=== PATIENT | female | born 1975 | race Caucasian/White ===

== ENCOUNTER → 2018-09-03 | Outpatient (CLI) | payer OTHER ==
--- NOTE | 2018-09-06 13:26 | MM ---
Reason for exam: screening (asymptomatic). Last mammogram was performed 3 years and 9 months ago. History: Taking hormonal contraceptives for 6 months. Physical Findings: A clinical breast exam by your physician is recommended on an annual basis and results should be correlated with mammographic findings. MG 3D Screening Mammo W/Cad Bilateral CC and MLO view(s) were taken. Prior study comparison: December 12, 2014, bilateral MG screening mammo w CAD. The breast tissue is heterogeneously dense. This may lower the sensitivity of mammography. New right upper outer quadrant posterior depth focal asymmetry. ASSESSMENT: Incomplete: need additional imaging evaluation, BI-RAD 0 RECOMMENDATION: Special view mammogram of the right breast. If lesion persists on supplemental views, image directed ultrasound is recommended. [facility] will attempt to contact patient to return for supplemental views and ultrasound if indicated.
== END | disposition home or self-care (01) ==
LOC: RADMAMWWP 09:57
PROVIDERS: ATTEND Obstetrics & Gynecology
DX: Z12.31 Encounter for screening mammogram for malignant neoplasm of breast (principal)
CPT/HCPCS: 77063; 77067

== ENCOUNTER → 2018-09-09 | Outpatient (CLI) | payer OTHER ==
--- NOTE | 2018-09-10 09:03 | MM ---
Reason for exam: additional evaluation requested from abnormal screening. Last mammogram was performed less than 1 month ago. History: Taking hormonal contraceptives for 6 months. Physical Findings: Nurse did not find any significant physical abnormalities on exam. MG 3D Work Up W/Cad RT Spot compression CC, spot compression MLO, and LM view(s) were taken of the right breast. Prior study comparison: September 03, 2018, bilateral MG 3d screening mammo w/cad. December 12, 2014, bilateral MG screening mammo w CAD. The breast tissue is heterogeneously dense. This may lower the sensitivity of mammography. Persistent right focal asymmetry 8-9cm from nipple at middle depth in the upper outer quadrant. These results were verbally communicated with the patient and result sheet given to the patient on 09/09/18. ASSESSMENT: Incomplete: need additional imaging evaluation, BI-RAD 0 RECOMMENDATION: Ultrasound of the right breast. upper outer quadrant
--- NOTE | 2018-09-10 09:06 | USB ---
Reason for exam: additional evaluation requested from abnormal screening. History: Taking hormonal contraceptives for 6 months. US Breast Workup Limited RT Right limited breast ultrasound including focal area of concern, retroareolar and axilla demonstrates a 0.6 x 0.5 x 0.7cm mixed lesion at 11 o'clock. 6 month follow up pending stereotactic biopsy results as this does not certainly correspond to mammographic finding. Stereotactic biopsy recommended for the mammographic finding. These results were verbally communicated with the patient and result sheet given to the patient on 09/09/18. ASSESSMENT: Suspicious, BI-RAD 4 RECOMMENDATION: Stereotactic core biopsy of the right breast. Called Dr. Maldonado with mammographic findings and has scheduled an appointment for the patient for 09/29/18 at 1:[address] Sanders. Biopsy scheduled for 09/23/18 at 2:20. PRELIMINARY REPORT CALLED AND FAXED TO DR. SANDERS ON 09/10/18.
== END | disposition home or self-care (01) ==
LOC: RADMAMWWP 14:06
PROVIDERS: ATTEND Obstetrics & Gynecology
DX: R92.8 Other abnormal and inconclusive findings on diagnostic imaging of breast (principal)
CPT/HCPCS: 77061; 77065

== ENCOUNTER → 2018-09-23 | Day surgery (SDC) | payer OTHER ==
[2018-09-23 13:47] VITALS: RESP 16; BMI 60.4
[2018-09-23 15:44] VITALS: BP 134/87; PULSE 80; TEMP 98
--- NOTE | 2018-09-24 11:58 | MM ---
EXAMINATION TYPE: MG stereo VAD BX RT DATE OF EXAM: 09/23/2018 COMPARISON: Diagnostic exam of 09/09/2018 CLINICAL HISTORY: Right breast posterior depth upper outer quadrant focal asymmetry with indeterminate on diagnostic exam without sonographic correlate for which stereotactic biopsy was recommended. TECHNIQUE: Stereotactic guided core biopsy of right breast. FINDINGS: The procedure of stereotactic guided core biopsy was explained to the patient. Benefits, alternatives, and risks were discussed. An informed consent was then obtained. Preprocedural timeout was performed. The shortness pathway for biopsy was chosen. Shortness pathway was CC from above approach. Coordinates were calculated. Subsequently 10 cc of lidocaine without epinephrine was utilized to anesthetize the skin and deeper subcutaneous soft tissues. The needle was advanced to the appropriate depth. Prefire images were obtained ensuring appropriate location. Postfire injection of 10 cc of lidocaine with epinephrine was utilized to anesthetize the site of biopsy. A vacuum assisted biopsy gun was used to obtain 11 core samples. The patient tolerated the procedure well without any immediate complication. The patient was kept in the radiology department for short stay after the procedure and then discharged home in stable condition. Targeted calcifications are identified in specimen mammogram. Post biopsy mammogram (CC and true lateral) shows the clip to appear in satisfactory position relative to the targeted area of concern on the preprocedure images. IMPRESSION: SUCCESSFUL, UNCOMPLICATED STEREOTACTIC GUIDED CORE BIOPSY OF AN INDETERMINATE ON THE PRIOR QUADRANT FOCAL ASYMMETRY AT POSTERIOR DEPTH WITHOUT SONOGRAPHIC CORRELATE BREAST, FULL PATHOLOGY RESULTS TO FOLLOW. Pathology Results: Benign RIGHT BREAST, STEREOTACTIC CORE BIOPSY: Benign breast with fibrocystic changes including fibrosis and small cysts. Focal fat necrosis. Recommendation Follow up mammogram and ultrasound of the right breast in 6 months. VICKIE
== END ==
LOC: RADMAMWWP 13:03
PROVIDERS: ATTEND Student in an Organized Health Care Education/Training Program
DX: N60.11 Diffuse cystic mastopathy of right breast (principal); N64.1 Fat necrosis of breast
CPT/HCPCS: 19081; 88305; A4648; J2001

== ENCOUNTER → 2019-08-24 | Outpatient (CLI) | payer OTHER ==
--- NOTE | 2019-08-24 10:54 | CT ---
EXAMINATION TYPE: CT abdomen pelvis wo con DATE OF EXAM: 08/24/2019 COMPARISON: None INDICATION: LLQ pain, renal stone protocol DLP: 921 mGycm, Automated exposure control for dose reduction was used. CONTRAST: 0 mL of . Study performed without Oral Contrast TECHNIQUE: Axial images were obtained from above the diaphragm to the pubic rami in the axial plane a t 5 mm thick sections. Reconstructed images are reviewed on the computer in the coronal plane. FINDINGS: Limited CT sections are obtained the lung bases. The lung bases are clear. CT ABDOMEN: Liver: Normal Spleen: Normal Pancreas: Normal Adrenal glands: The adrenal glands are normal. Gallbladder: Normal Kidneys: No masses are evident. No hydronephrosis is present. No cysts are present. No renal stone s are identified. Aorta: Normal Inferior vena cava: Normal. CT PELVIS: There are some inflammatory changes in the proximal descending paracolic gutter. Diverticuli are pres ent adjacent. Mild acute diverticulitis is present. No abscess formation is evident. No free air is e vident. The study is performed without oral contrast limiting bowel evaluation. Appendix: Normal as visualized. Urinary bladder: Normal. Genitourinary structures: There is a large right ovarian cyst measuring 6.6 x 4.6 cm. A smaller left ovarian cyst measuring 1.6 x 2.2 cm is present. Uterus is unremarkable. Osseous structures: No suspicious lytic or sclerotic lesions. Degenerative disc change and facet jara ges are in the lower lumbar spine IMPRESSIONS: 1. Mild acute diverticulitis proximal ascending colon. No abscess formation or free air is evident.
== END | disposition home or self-care (01) ==
LOC: RADCTMAIN 10:07
PROVIDERS: ATTEND Family Medicine
DX: K57.32 Diverticulitis of large intestine without perforation or abscess without bleeding (principal)
CPT/HCPCS: 74176

== ENCOUNTER → 2020-03-12 | Outpatient (CLI) | payer OTHER ==
--- NOTE | 2020-03-13 14:17 | MM ---
Reason for exam: screening (asymptomatic). Last mammogram was performed 1 year and 6 months ago. History: Benign MG stereo VAD BX RT of the right breast, September 23, 2018. Taking hormonal contraceptives for 6 months. Physical Findings: A clinical breast exam by your physician is recommended on an annual basis and results should be correlated with mammographic findings. MG 3D Screening Mammo W/Cad Bilateral CC and MLO view(s) were taken. Prior study comparison: September 09, 2018, right breast MG 3d work up w/cad RT. September 03, 2018, bilateral MG 3d screening mammo w/cad. The breast tissue is heterogeneously dense. This may lower the sensitivity of mammography. Previous mammotome biopsy in the right breast. No significant changes when compared with prior studies. ASSESSMENT: Benign, BI-RAD 2 RECOMMENDATION: Routine screening mammogram of both breasts in 1 year.
== END | disposition home or self-care (01) ==
LOC: RADMAMWWP 15:47
PROVIDERS: ATTEND Obstetrics & Gynecology
DX: Z12.31 Encounter for screening mammogram for malignant neoplasm of breast (principal)
CPT/HCPCS: 77063; 77067

== ENCOUNTER → 2020-06-28 | Outpatient (CLI) | payer OTHER ==
--- NOTE | 2020-06-28 17:55 | XR ---
PROCEDURE: XR cervical spine comp - 6V DATE AND TIME: 06/28/2020 5:45 PM CLINICAL INDICATION: PHH; M54.5, M54.6; pain TECHNIQUE: Department protocol COMPARISON: None FINDINGS: There is no fracture or malalignment. The soft tissues are unremarkable. Multilevel relatively mild spondylosis changes are noted, most advanced at the C5-6 level. IMPRESSION: NO ACUTE PROCESS.
--- NOTE | 2020-06-28 17:56 | XR ---
PROCEDURE: XR thoracic spine complete - 3V DATE AND TIME: 06/28/2020 5:44 PM CLINICAL INDICATION: PHH; M54.5, M54.6; pain TECHNIQUE: Department protocol COMPARISON: None FINDINGS: There is no fracture or malalignment. The soft tissues are unremarkable. IMPRESSION: NO ACUTE PROCESS.
--- NOTE | 2020-06-28 17:58 | XR ---
PROCEDURE: XR lumbosacral spine 5 views DATE AND TIME: 06/28/2020 5:45 PM CLINICAL INDICATION: PHH; M54.5, M54.6: Pain, worse on the left TECHNIQUE: Department protocol COMPARISON: None FINDINGS: There is no fracture or malalignment. The soft tissues are unremarkable. IMPRESSION: NO ACUTE PROCESS.
== END | disposition home or self-care (01) ==
LOC: RADXRMAIN 17:11
PROVIDERS: ATTEND Family Medicine
DX: M54.6 Pain in thoracic spine (principal); M54.5 Low back pain
CPT/HCPCS: 72050; 72072; 72110

== ENCOUNTER → 2020-10-08 | Outpatient (CLI) | payer OTHER ==
--- NOTE | 2020-10-09 03:08 | MR ---
EXAMINATION TYPE: MR cervical spine wo con DATE OF EXAM: 10/08/2020 COMPARISON: None HISTORY: neck and shoulder pain x6-7 years Multiplanar multiecho imaging of the cervical spine without contrast. FINDINGS: There is some straightening of the cervical spine. Disc spaces are fairly normal. There are small pos terior disc bulging at C4-5 and C5-6. Herniation at C5-6 is in contact with the anterior cervical spi nal cord. Canal measures 6.5 mm. Cervical spinal cord has normal signal pattern. There is no edema. T he brainstem is intact. I see no focal bone destruction. There is no evidence of cervical paraspinal mass. IMPRESSION: Small posterior disc herniations at C4-5 and C5-6. There is a mild relative spinal stenosis of 6.5 mm at C5-6. Disc herniation at C4-5 is towards the right side.
== END | disposition home or self-care (01) ==
LOC: RADMRIMAIN 14:40
PROVIDERS: ATTEND Family Medicine
DX: M48.02 Spinal stenosis, cervical region (principal); M50.222 Other cervical disc displacement at C5-C6 level
CPT/HCPCS: 72141